=== PATIENT | male | born 1995 | race Caucasian/White ===

== ENCOUNTER → 2016-12-05 | Outpatient (CLI) | payer BC ==
--- NOTE | 2016-12-05 12:14 | DI ---
XR WRIST COMPLETE MIN 3VW,12/05/2016 10:45 AM: Clinical History: Right wrist pain. Previous Exam: None at this facility. Findings: 3 views of the right wrist are obtained, and demonstrate anatomic alignment without fractures. The li rrounding soft tissue and osseous structures are unremarkable. Impression: Normal right wrist. If pain continues or worsens, consider followup imaging in 7-10 days.
--- NOTE | 2016-12-05 12:15 | DI ---
XR WRIST COMPLETE MIN 3VW,12/05/2016 10:45 AM: Clinical History: Left wrist pain. Previous Exam: None at this facility. Findings: 3 views of left wrist are obtained, and demonstrate anatomic alignment without fractures. The surroun ding soft tissues are unremarkable. Impression: Normal left wrist. Note: If pain persists or worsens, recommend followup imaging in 7-10 days to rule out an occult frac ture.
== END ==
LOC: ORTHO 10:53
PROVIDERS: ATTEND Orthopaedic Surgery
DX: M25.531 Pain in right wrist (principal); M25.532 Pain in left wrist; G56.03 Carpal tunnel syndrome, bilateral upper limbs
CPT/HCPCS: 73110